=== PATIENT | female | born 1975 | race Two or more races ===

== ENCOUNTER 2017-10-23 09:45 | Inpatient (IN) | payer OTHER ==
[~2017-10-23] VITALS: Ht 152.4 cm; Wt 59.4 kg
[2017-10-25] MEDS ORDERED: LORAZEPAM0.5 MG PO (10:04)
[2017-10-25] MEDS ORDERED: LAMOTRIGINE25 M1 PO (10:05)
[2017-10-25] MEDS ORDERED: SETRALINE PO (10:05)
== END 2017-10-27 15:23 | disposition home or self-care (01) | DRG 581 ==
LOC: SURH 10-26 06:00 → O/R 10-26 07:15 → SURH 10-26 08:45
PROVIDERS: Plastic Surgery; Surgery
PROC: 0HPT0JZ Removal of Synthetic Substitute from Right Breast, Open Approach (ICD-10-PCS; 2017-10-26)
PROC: 0HPU0JZ Removal of Synthetic Substitute from Left Breast, Open Approach (ICD-10-PCS; 2017-10-26)
PROC: 0HRV0JZ Replacement of Bilateral Breast with Synthetic Substitute, Open Approach (ICD-10-PCS; principal; 2017-10-26 08:45)
PROC: 07T60ZZ Resection of Left Axillary Lymphatic, Open Approach (ICD-10-PCS; 2017-10-26 08:45)
DX: C50.212 Malignant neoplasm of upper-inner quadrant of left female breast (principal); Z90.13 Acquired absence of bilateral breasts and nipples; Z15.01 Genetic susceptibility to malignant neoplasm of breast
CPT/HCPCS: 19303; 38525; 38792; 19357; 19328; 78195; 19340; 19371; A9541

== ENCOUNTER 2017-10-23 09:55 | Outpatient (CLI) | payer OTHER | END 2017-10-23 11:56 | disposition home or self-care (01) | LOC: LAB 09:55 | DX: Z15.01 Genetic susceptibility to malignant neoplasm of breast (principal) ==

== ENCOUNTER 2018-04-17 18:38 | Emergency (ER) | payer OTHER ==
[~2018-04-17] VITALS: Ht 152.4 cm; Wt 61.2 kg
[~2018-04-17 18:38] MED LIST: LAMOTRIGINE25 M1 PO; LORAZEPAM0.5 MG PO; SETRALINE PO
== END 2018-04-17 23:27 | disposition home or self-care (01) ==
LOC: ER 18:38
DX: S93.491A Sprain of other ligament of right ankle, initial encounter (principal); X50.3XXA Overexertion from repetitive movements, initial encounter; Y93.89 Activity, other specified; Y92.89 Other specified places as the place of occurrence of the external cause; Y99.8 Other external cause status

== ENCOUNTER 2018-10-24 15:41 | Inpatient (IN) | payer OTHER ==
[~2018-10-24] VITALS: Ht 152.4 cm; Wt 62.1 kg
[~2018-10-24 15:41] MED LIST changes: +ESCITALOPRAM OX10 MG PO
== END 2018-10-26 13:17 | disposition home or self-care (01) | DRG 941 ==
LOC: O/R 10-25 06:00 → SURH 10-25 07:00 → SURG 10-25 16:05
PROVIDERS: ADMIT Plastic Surgery
PROC: 0HNT0ZZ Release Right Breast, Open Approach (ICD-10-PCS; 2018-10-25)
PROC: 0HPU0JZ Removal of Synthetic Substitute from Left Breast, Open Approach (ICD-10-PCS; 2018-10-25)
PROC: 0HPT0JZ Removal of Synthetic Substitute from Right Breast, Open Approach (ICD-10-PCS; 2018-10-25)
PROC: 0KXL0Z6 Transfer Left Abdomen Muscle, Transverse Rectus Abdominis Myocutaneous Flap, Open Approach (ICD-10-PCS; principal; 2018-10-25 07:00)
DX: Z90.13 Acquired absence of bilateral breasts and nipples (principal)